=== PATIENT | female | born 1975 | race Caucasian/White ===

== ENCOUNTER 2019-03-25 13:44 | Inpatient (IN) | payer BC ==
[2019-03-25 18:54] VITALS: BMI 21.4
--- NOTE | 2019-03-25 21:33 | HP ---
CIWA Score Nausea/Vomitin-Mild Nausea/No Vomiting Muscle Tremors: 4-Moderate,w/Arms Extend Anxiety: 3 Agitation: 1-Slight > Activity Paroxysmal Sweats: 3 Orientation: 0-Oriented Tacttile Disturbances: 0-None Auditory Disturbances: 0-None Visual Disturbances: 0-None Headache: 4-Moderately Severe CIWA-Ar Total Score: 16 - Admission Criteria OASAS Guidelines: Admission for Medically Managed Detox: Requires at least one of the followin. CIWA greater than 12 2. Seizures within the past 24 hours 3. Delirium tremens within the past 24 hours 4. Hallucinations within the past 24 hours 5. Acute intervention needed for co occurring medical disorder 6. Acute intervention needed for co occurring psychiatric disorder 7. Severe withdrawal that cannot be handled at a lower level of care (continued vomiting, continued diarrhea, abnormal vital signs) requiring intravenous medication and/or fluids 8. Admission ROS [facility] Chief Complaint: Alcohol withdrawal symptoms Allergies/Adverse Reactions: Allergies Allergy/AdvReac Type Severity Reaction Status Date / Time Penicillins AdvReac Severe Swelling Verified 03/25/19 18:23 papaya Allergy Mild Swelling Uncoded 03/25/19 18:23 guava AdvReac Severe Swelling Uncoded 03/25/19 18:23 History of Present Illness: 43 years old female with 29 years of alcohol dependence is seeking admission to detox. Patient has been in previous detox at [facility] and reports insignificant period of sobriety. She reports history of hypertension, hyperthyroidism, seizures, anxiety and depression. She reports suicide attempt 25 years ago and denies suicidal ideation at this time. patient reports blackouts from alcohol intoxication. Patient reports that she fell a couple of days ago. She has bruises to her right hip and left hand. Fall precaution initiated Exam Limitations: No Limitations - Ebola screening Have you traveled outside of the country in the last 21 days: No (N) Have you had contact with anyone from an Ebola affected area: No Do you have a fever: No - Review of Systems Constitutional: Chills, Loss of Appetite, Malaise, Night Sweats, Changes in sleep EENT: reports: Sinus Pressure Respiratory: reports: No Symptoms reported Cardiac: reports: No Symptoms Reported GI: reports: Diarrhea (x 3), Nausea, Poor Appetite, Abdominal cramping : reports: No Symptoms Reported Musculoskeletal: reports: Back Pain, Joint Pain, Muscle Pain Integumentary: reports: Bruising (left hand), Dryness, Flushing Neuro: reports: Headache, Tremors Endocrine: reports: No Symptoms Reported Hematology: reports: No Symptoms Reported Psychiatric: reports: Orientated x3, Anxious, Depressed Other Systems: Reviewed and Negative Patient History - Patient Medical History Hx Anemia: No Hx Asthma: No Hx Chronic Obstructive Pulmonary Disease (COPD): No Hx Cancer: No Hx Cardiac Disorders: No Hx Congestive Heart Failure: No Hx Hypertension: Yes (Not on medication) Hx Hypercholesterolemia: No Hx Pacemaker: No HX Cerebrovascular Accident: No Hx Seizures: Yes (Not on medication) Hx Dementia: No Hx Diabetes: No Hx Gastrointestinal Disorders: No Hx Liver Disease: No Hx Genitourinary Disorders: No Hx Sexually Transmitted Disorders: No Hx Renal Disease (ESRD): No Hx Thyroid Disease: Yes (Hyperthyroid - Not on medication) Hx Human Immunodeficiency Virus (HIV): No Hx Hepatitis C: No Hx Depression: Yes (Not on medication) Hx Suicide Attempt: Yes (Attempt 25 years ago; denies suicidal ideation at this time) Hx Bipolar Disorder: No Hx Schizophrenia: No Other Medical History: anxiety - Not on medixcation - Patient Surgical History Past Surgical History: Yes Hx Orthopedic Surgery: Yes (Knee surgery 23 years ago) Anesthesia Reaction: No - PPD History Previous Implant?: Yes Documented Results: Negative w/o proof Implanted On Prior R Admission?: No PPD to be Administered?: Yes - Reproductive History Patient is a Female of Child Bearing Age (11 -55 yrs old): Yes Last Menstrual Period: 02/16/19 Patient : No - Smoking Cessation Smoking history: Current every day smoker Have you smoked in the past 12 months: Yes Aproximately how many cigarettes per day: 20 Hx Chewing Tobacco Use: No Initiated information on smoking cessation: Yes 'Breaking Loose' booklet given: 03/25/19 - Substance & Tx. History Hx Alcohol Use: Yes Hx Substance Use: Yes Substance Use Type: Alcohol, Marijuana Hx Substance Use Treatment: Yes ([facility] - Substances abused Alcohol Substance route: Oral Frequency: Daily Amount used: 2 liters Age of first use: 14 Date of last use: 03/25/19 Marijuana/Hashish Substance route: Smoking Frequency: 1-2 times per week Amount used: 1 joint Age of first use: 13 Date of last use: 03/25/19 Family Disease History - Family Disease History Family Disease History: CA: Grandparent (Breast cancer - ), Mother ( Alcoholic, Brain tumor ), Brother (Prostate Ca) Admission Physical Exam [facility] - Vital Signs Vital Signs: Vital Signs - 24 hr 03/25/19 18:44 Temperature 99.2 F Pulse Rate 129 H Respiratory 16 Rate Blood Pressure 114/65 - Physical General Appearance: Yes: Moderate Distress, Tremorous, Irritable, Anxious HEENTM: Yes: Within Normal Limits, Nasal Congestion, Rhinorrhea Respiratory: Yes: Lungs Clear, Normal Breath Sounds, No Respiratory Distress Neck: Yes: Supple Breast: Yes: Breast Exam Deferred Cardiology: Yes: Tachycardia Abdominal: Yes: Normal Bowel Sounds, Flat Genitourinary: Yes: Within Normal Limits Back: Yes: Normal Inspection Musculoskeletal: Yes: Back pain, Muscle Pain Extremities: Yes: Tremors Neurological: Yes: Alert, Normal Mood/Affect Integumentary: Yes: Warm Lymphatic: Yes: Within Normal Limits - Diagnostic (1) Alcohol dependence with uncomplicated withdrawal Current Visit: Yes Status: Acute (2) Nicotine dependence Current Visit: Yes Status: Chronic Qualifiers: Nicotine product type: cigarettes Substance use status: uncomplicated Qualified Code(s): F17.210 - Nicotine dependence, cigarettes, uncomplicated (3) Hypertension Current Visit: Yes Status: Chronic Qualifiers: Hypertension type: essential hypertension Qualified Code(s): I10 - Essential (primary) hypertension (4) Seizures Current Visit: Yes Status: Chronic (5) Anxiety Current Visit: Yes Status: Chronic (6) Depression Current Visit: Yes Status: Chronic Qualifiers: Depression Type: unspecified Qualified Code(s): F32.9 - Major depressive disorder, single episode, unspecified Cleared for Admission [facility] - Detox or Rehab [facility] Level of Care: Medically Managed Detox Regimen/Protocol: Librium Breathalyzer - Breathalyzer Breathalyzer: 0.181 Urine Drug Screen - Test Device Lot number: [id number] Expiration date: 11/30/20 - Control Is test valid?: Yes - Results Drug screen NEGATIVE: No Urine drug screen results: THC-Marijuana, BZO-Benzodiazepines Inpatient Rehab Admission - Rehab Decision to Admit Inpatient rehab admission?: No
[2019-03-25] MEDS ORDERED: MAGNESIUM HYDROX 2400MG/30ML ORAL SUSPENSION 30 ML CUP PO PRN (21:47)
[2019-03-25] MEDS ORDERED: MAG HYDROX/AL HYDROX/SIMETH 30 ML UNIT-DOSE CUP PO PRN (21:47)
[2019-03-25] MEDS ORDERED: MENTHOL/PHENOL 1 EACH UD MM PRN (21:47)
[2019-03-25] MEDS ORDERED: ACETAMINOPHEN 325 MG TABLET (FP) PO PRN ×2 (21:47)
[2019-03-25] MEDS ORDERED: hydrOXYzine PAMOATE 25 MG CAPSULE (FP) PO PRN (21:47)
[2019-03-25] MEDS ORDERED: MAGNESIUM CITRATE 300 ML BOTTLE PO PRN (21:47)
[2019-03-25] MEDS: THIAMINE HCL 100 MG TABLET (FP) PO SCH (23:06)
[2019-03-25] MEDS: chlordiazePOXIDE HCL 25 MG CAPSULE PO SCH (23:06)
[2019-03-26] MEDS: chlordiazePOXIDE HCL 25 MG CAPSULE PO PRN ×2 (02:28→20:44)
[2019-03-26] MEDS: chlordiazePOXIDE HCL 25 MG CAPSULE PO SCH ×4 (05:39→22:26)
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
[2019-03-26 10:23] LABS: HEMATOCRIT 38.8 % (32.4-45.2); HEMOGLOBIN 13.3 GM/dL (10.7-15.3); MCH 36.6 pg (25.7-33.7); MCHC 34.2 g/dl (32.0-36.0); MEAN PLT VOLUME 7.9 fl (7.5-11.1); PLATELET COUNT 79 K/MM3 (134-434); RBC 3.62 M/mm3 (3.60-5.2); WHITE BLOOD COUNT 4.1 K/mm3 (4.0-10.0)
[2019-03-26 10:28] LABS: ALBUMIN 3.2 g/dl (3.4-5.0); BILIRUBIN,TOTAL 1.8 mg/dL (0.2-1); BLOOD UREA NITROGEN 4.1 mg/dL (7-18); CALCIUM 8.3 mg/dL (8.5-10.1); CREATININE 0.6 mg/dL (0.55-1.3); POTASSIUM 3.3 mmol/L (3.5-5.1); TOT PROT 6.5 g/dl (6.4-8.2)
--- NOTE | 2019-03-26 10:40 | EKG ---
Test Reason : Blood Pressure : / mmHG Vent. Rate : 099 BPM Atrial Rate : 099 BPM P-R Int : 140 ms QRS Dur : 086 ms QT Int : 364 ms P-R-T Axes : 060 082 072 degrees QTc Int : 467 ms NORMAL SINUS RHYTHM WITH SINUS ARRHYTHMIA NORMAL ECG NO PREVIOUS ECGS AVAILABLE Confirmed by OWEN JEONG, AVNESSA ([id number]) on 03/26/2019 10:40:09 AM Referred By: KEELEY EHLM Confirmed By:VANESSA WEAVER MD
[2019-03-26] MEDS: PRENATAL VITAMINS W/ FOLIC ACID TABLET (FP) PO SCH (11:09)
[2019-03-26] MEDS: NICOTINE 21 MG/24 HOURS TOPICAL PATCH TD SCH (11:09)
[2019-03-26] MEDS: ONDANSETRON *ODT* 4 MG TABLET SL PRN ×2 (11:09→18:32)
--- NOTE | 2019-03-26 14:08 | PN ---
S CIWA - CIWA Score Nausea/Vomitin-No Nausea/No Vomiting Muscle Tremors: 3 Anxiety: 3 Agitation: 4-Moderately Restless Paroxysmal Sweats: 3 Orientation: 0-Oriented Tacttile Disturbances: 0-None Auditory Disturbances: 0-None Visual Disturbances: 0-None Headache: 0-None Present CIWA-Ar Total Score: 13 BHS Progress Note (SOAP) Subjective: sweats shakes interrupted sleep body aches nausea Objective: 03/26/19 14:07 Vital Signs Temperature 96.4 F L 03/26/19 09:25 Pulse Rate 102 H 03/26/19 09:25 Respiratory Rate 16 03/26/19 09:25 Blood Pressure 125/93 03/26/19 09:25 O2 Sat by Pulse Oximetry (%) Laboratory Tests 03/26/19 03/26/19 03/26/19 07:00 07:00 07:00 WBC 4.1 RBC 3.62 Hgb 13.3 Hct 38.8 MCV 107.0 H MCH 36.6 H MCHC 34.2 RDW 19.0 H Plt Count 79 L MPV 7.9 Sodium 138 Potassium 3.3 L Chloride 101 Carbon Dioxide 30 Anion Gap 7 L BUN 4.1 L Creatinine 0.6 Est GFR (CKD-EPI)AfAm 130.30 Est GFR (CKD-EPI)NonAf 112.42 Random Glucose 85 Calcium 8.3 L Total Bilirubin 1.8 H AST 487 H ALT 102 H Alkaline Phosphatase 232 H Total Protein 6.5 Albumin 3.2 L RPR Titer Nonreactive HIV 1&2 Antibody Screen HIV P24 Antigen 03/26/19 07:00 WBC RBC Hgb Hct MCV MCH MCHC RDW Plt Count MPV Sodium Potassium Chloride Carbon Dioxide Anion Gap BUN Creatinine Est GFR (CKD-EPI)AfAm Est GFR (CKD-EPI)NonAf Random Glucose Calcium Total Bilirubin AST ALT Alkaline Phosphatase Total Protein Albumin RPR Titer HIV 1&2 Antibody Screen Negative HIV P24 Antigen Negative Labs noted mild hypokalemia; will repeat and replenish elevated ast/alt d/c tylenol repeat labs aaox3 ambulating no acute distress Assessment: 03/26/19 14:10 withdrawal sx Plan: continue detox increase fluids f/u repeated labs
[2019-03-26] MEDS: POTASSIUM CHLORIDE TABS 20 MEQ TABLET.ER (FP) PO SCH (14:59)
[2019-03-26] MEDS: BISMUTH SUBSALICYLATE 524 MG/30 ML UD PO PRN ×2 (15:34→18:32)
[2019-03-26] MEDS: NICOTINE POLACRILEX 2 MG GUM BUC PRN ×2 (16:39→20:50)
[2019-03-26] MEDS: IBUPROFEN 400 MG TABLET (FP) PO PRN (18:32)
[2019-03-26] MEDS: hydrOXYzine PAMOATE 50 MG CAPSULE (FP) PO PRN (18:32)
[2019-03-26] MEDS: THIAMINE HCL 100 MG TABLET (FP) PO SCH (22:26)
[2019-03-26] MEDS: QUEtiapine FUMARATE 100 MG TABLET (FP) PO SCH (22:26)
[2019-03-26] MEDS: MELATONIN 5 MG TABLETS PO PRN (22:27)
[2019-03-27] MEDS: IBUPROFEN 400 MG TABLET (FP) PO PRN ×4 (00:06→18:03)
[2019-03-27] MEDS: hydrOXYzine PAMOATE 50 MG CAPSULE (FP) PO PRN ×5 (00:06→22:42)
[2019-03-27] MEDS: chlordiazePOXIDE HCL 25 MG CAPSULE PO SCH ×3 (05:43→17:59)
[2019-03-27] MEDS ORDERED: hydrOXYzine PAMOATE 25 MG CAPSULE (FP) PO ONE (05:44)
[2019-03-27] MEDS: PRENATAL VITAMINS W/ FOLIC ACID TABLET (FP) PO SCH (11:00)
[2019-03-27] MEDS: POTASSIUM CHLORIDE TABS 20 MEQ TABLET.ER (FP) PO SCH (11:00)
[2019-03-27] MEDS: NICOTINE 21 MG/24 HOURS TOPICAL PATCH TD SCH (11:00)
[2019-03-27] MEDS: NICOTINE POLACRILEX 2 MG GUM BUC PRN ×3 (11:05→21:04)
[2019-03-27] MEDS: BISMUTH SUBSALICYLATE 524 MG/30 ML UD PO PRN ×2 (11:07→14:29)
--- NOTE | 2019-03-27 11:45 | PN ---
S CIWA - CIWA Score Nausea/Vomitin-No Nausea/No Vomiting Muscle Tremors: 3 Anxiety: 3 Agitation: 3 Paroxysmal Sweats: 1-Minimal Palms Moist Orientation: 0-Oriented Tacttile Disturbances: 0-None Auditory Disturbances: 0-None Visual Disturbances: 0-None Headache: 0-None Present CIWA-Ar Total Score: 10 BHS Progress Note (SOAP) Subjective: anxiety sweats shakes irritable Objective: 03/27/19 11:44 Vital Signs Temperature 97.9 F 03/27/19 09:53 Pulse Rate 80 03/27/19 09:53 Respiratory Rate 16 03/27/19 09:53 Blood Pressure 100/66 03/27/19 09:53 O2 Sat by Pulse Oximetry (%) Laboratory Tests 03/25/19 03/26/19 03/26/19 19:22 07:00 07:00 WBC 4.1 RBC 3.62 Hgb 13.3 Hct 38.8 MCV 107.0 H MCH 36.6 H MCHC 34.2 RDW 19.0 H Plt Count 79 L MPV 7.9 Sodium 138 Potassium 3.3 L Chloride 101 Carbon Dioxide 30 Anion Gap 7 L BUN 4.1 L Creatinine 0.6 Est GFR (CKD-EPI)AfAm 130.30 Est GFR (CKD-EPI)NonAf 112.42 Random Glucose 85 Calcium 8.3 L Total Bilirubin 1.8 H AST 487 H ALT 102 H Alkaline Phosphatase 232 H Total Protein 6.5 Albumin 3.2 L POC Urine HCG, Qual Negative RPR Titer HIV 1&2 Antibody Screen HIV P24 Antigen 03/26/19 03/26/19 07:00 07:00 WBC RBC Hgb Hct MCV MCH MCHC RDW Plt Count MPV Sodium Potassium Chloride Carbon Dioxide Anion Gap BUN Creatinine Est GFR (CKD-EPI)AfAm Est GFR (CKD-EPI)NonAf Random Glucose Calcium Total Bilirubin AST ALT Alkaline Phosphatase Total Protein Albumin POC Urine HCG, Qual RPR Titer Nonreactive HIV 1&2 Antibody Screen Negative HIV P24 Antigen Negative repeated labs pending aaox3 ambulating no acute distress Assessment: 03/27/19 11:44 withdrawal sx Plan: continue detox increase fluids
[2019-03-27 12:26] LABS: ALBUMIN 3.5 g/dl (3.4-5.0); BILIRUBIN,TOTAL 1.6 mg/dL (0.2-1); BLOOD UREA NITROGEN 5.5 mg/dL (7-18); CALCIUM 9.4 mg/dL (8.5-10.1); CREATININE 0.6 mg/dL (0.55-1.3); TOT PROT 6.6 g/dl (6.4-8.2)
[2019-03-27 13:22] LABS: INR 0.88 (0.83-1.09); PROTHROMBIN TIME (PATIENT) 10.4 SEC (9.7-13.0)
[2019-03-27] MEDS: chlordiazePOXIDE HCL 25 MG CAPSULE PO PRN ×2 (14:26→21:04)
[2019-03-27] MEDS: chlordiazePOXIDE HCL 10 MG CAPSULE PO SCH (22:39)
[2019-03-27] MEDS: QUEtiapine FUMARATE 100 MG TABLET (FP) PO SCH (22:39)
[2019-03-27] MEDS: THIAMINE HCL 100 MG TABLET (FP) PO SCH (22:39)
[2019-03-27] MEDS: MELATONIN 5 MG TABLETS PO PRN (22:40)
[2019-03-27] MEDS ORDERED: chlordiazePOXIDE HCL 10 MG CAPSULE PO PRN (23:00)
[2019-03-28] MEDS: chlordiazePOXIDE HCL 10 MG CAPSULE PO SCH ×4 (05:56→23:00)
[2019-03-28] MEDS: hydrOXYzine PAMOATE 50 MG CAPSULE (FP) PO PRN ×3 (05:57→19:04)
[2019-03-28] MEDS: POTASSIUM CHLORIDE TABS 20 MEQ TABLET.ER (FP) PO SCH (10:41)
[2019-03-28] MEDS: PRENATAL VITAMINS W/ FOLIC ACID TABLET (FP) PO SCH (10:42)
[2019-03-28] MEDS: NICOTINE 21 MG/24 HOURS TOPICAL PATCH TD SCH (10:42)
[2019-03-28] MEDS: IBUPROFEN 400 MG TABLET (FP) PO PRN ×2 (10:43→19:03)
[2019-03-28] MEDS: NICOTINE POLACRILEX 2 MG GUM BUC PRN (10:47)
--- NOTE | 2019-03-28 12:27 | EKG ---
Test Reason : Blood Pressure : / mmHG Vent. Rate : 079 BPM Atrial Rate : 079 BPM P-R Int : 136 ms QRS Dur : 086 ms QT Int : 398 ms P-R-T Axes : 063 084 077 degrees QTc Int : 456 ms NORMAL SINUS RHYTHM NORMAL ECG WHEN COMPARED WITH ECG OF 25-MAR-2019 22:11, NO SIGNIFICANT CHANGE WAS FOUND Confirmed by THEE JEONG, BEATA ([id number]) on 03/28/2019 12:27:19 PM Referred By: VOLODYMYR HUERTAS Confirmed By:BEATA KINGSTON MD
--- NOTE | 2019-03-28 14:02 | PN ---
BHS Progress Note Note: Patient reports sleeping poorly despite taking Seroquel 100 mh/hs. Requests for Seroquel dosage to be increased to 200 mg/hs
--- NOTE | 2019-03-28 14:11 | PN ---
S CIWA - CIWA Score Nausea/Vomitin-No Nausea/No Vomiting Muscle Tremors: 3 Anxiety: 2 Agitation: 2 Paroxysmal Sweats: 2 Orientation: 0-Oriented Tacttile Disturbances: 0-None Auditory Disturbances: 0-None Visual Disturbances: 0-None Headache: 0-None Present CIWA-Ar Total Score: 9 S Progress Note (SOAP) Subjective: little anxiety feeling better Objective: 03/28/19 14:10 Vital Signs Temperature 98.2 F 03/28/19 10:00 Pulse Rate 100 H 03/28/19 10:00 Respiratory Rate 17 03/28/19 10:00 Blood Pressure 129/69 03/28/19 10:00 O2 Sat by Pulse Oximetry (%) Laboratory Tests 03/25/19 03/26/19 03/26/19 19:22 07:00 07:00 WBC 4.1 RBC 3.62 Hgb 13.3 Hct 38.8 MCV 107.0 H MCH 36.6 H MCHC 34.2 RDW 19.0 H Plt Count 79 L MPV 7.9 PT with INR INR Sodium 138 Potassium 3.3 L Chloride 101 Carbon Dioxide 30 Anion Gap 7 L BUN 4.1 L Creatinine 0.6 Est GFR (CKD-EPI)AfAm 130.30 Est GFR (CKD-EPI)NonAf 112.42 Random Glucose 85 Calcium 8.3 L Total Bilirubin 1.8 H AST 487 H ALT 102 H Alkaline Phosphatase 232 H Total Protein 6.5 Albumin 3.2 L POC Urine HCG, Qual Negative RPR Titer HIV 1&2 Antibody Screen HIV P24 Antigen 03/26/19 03/26/19 03/27/19 07:00 07:00 08:35 WBC RBC Hgb Hct MCV MCH MCHC RDW Plt Count MPV PT with INR 10.40 INR 0.88 Sodium Potassium Chloride Carbon Dioxide Anion Gap BUN Creatinine Est GFR (CKD-EPI)AfAm Est GFR (CKD-EPI)NonAf Random Glucose Calcium Total Bilirubin AST ALT Alkaline Phosphatase Total Protein Albumin POC Urine HCG, Qual RPR Titer Nonreactive HIV 1&2 Antibody Screen Negative HIV P24 Antigen Negative 03/27/19 08:35 WBC RBC Hgb Hct MCV MCH MCHC RDW Plt Count MPV PT with INR INR Sodium 139 Potassium 4.0 Chloride 103 Carbon Dioxide 29 Anion Gap 7 L BUN 5.5 L Creatinine 0.6 Est GFR (CKD-EPI)AfAm 130.30 Est GFR (CKD-EPI)NonAf 112.42 Random Glucose 70 L Calcium 9.4 Total Bilirubin 1.6 H AST 303 H ALT 93 H Alkaline Phosphatase 225 H Total Protein 6.6 Albumin 3.5 POC Urine HCG, Qual RPR Titer HIV 1&2 Antibody Screen HIV P24 Antigen repeat labs ast.alt; are improving aaox3 ambulating no acute distress Assessment: 03/28/19 14:11 mild withdrawal sx Plan: continue detox increase fluids
[2019-03-28] MEDS: ONDANSETRON *ODT* 4 MG TABLET SL PRN (17:34)
[2019-03-28] MEDS: METHOCARBAMOL 500 MG TABLET PO PRN (17:35)
[2019-03-28] MEDS: MELATONIN 5 MG TABLETS PO PRN (23:00)
[2019-03-28] MEDS: QUEtiapine FUMARATE 200 MG TABLET PO SCH (23:00)
[2019-03-28] MEDS: THIAMINE HCL 100 MG TABLET (FP) PO SCH (23:00)
[2019-03-29] MEDS: hydrOXYzine PAMOATE 50 MG CAPSULE (FP) PO PRN ×4 (08:30→22:34)
[2019-03-29] MEDS: METHOCARBAMOL 500 MG TABLET PO PRN ×3 (08:31→21:00)
[2019-03-29] MEDS: IBUPROFEN 400 MG TABLET (FP) PO PRN (10:39)
[2019-03-29] MEDS: POTASSIUM CHLORIDE TABS 20 MEQ TABLET.ER (FP) PO SCH (10:40)
[2019-03-29] MEDS: PRENATAL VITAMINS W/ FOLIC ACID TABLET (FP) PO SCH (10:40)
[2019-03-29] MEDS: NICOTINE 21 MG/24 HOURS TOPICAL PATCH TD SCH (10:40)
[2019-03-29] MEDS: chlordiazePOXIDE HCL 10 MG CAPSULE PO SCH ×2 (10:40→22:31)
--- NOTE | 2019-03-29 12:32 | PN ---
S CIWA - CIWA Score Nausea/Vomitin-No Nausea/No Vomiting Muscle Tremors: 1-None Visible, but [place] Anxiety: 1-Mildly Anxious Agitation: 1-Slight > Activity Paroxysmal Sweats: No Perspiration Orientation: 0-Oriented Tacttile Disturbances: 0-None Auditory Disturbances: 0-None Visual Disturbances: 0-None Headache: 0-None Present CIWA-Ar Total Score: 3 BHS Progress Note (SOAP) Subjective: little anxiety Objective: 03/29/19 12:31 Vital Signs Temperature 97.9 F 03/29/19 09:39 Pulse Rate 96 H 03/29/19 09:39 Respiratory Rate 18 03/29/19 09:39 Blood Pressure 101/66 03/29/19 09:39 O2 Sat by Pulse Oximetry (%) aaox3 ambulating no acute distress Assessment: 03/29/19 12:32 mild to no withdrawal sx Plan: continue and complete detox increase fluids d/c in am
[2019-03-29] MEDS: NICOTINE POLACRILEX 2 MG GUM BUC PRN (16:03)
--- NOTE | 2019-03-29 18:00 | PN ---
[facility] Progress Note Note: Vital Signs Temperature 98.4 F 03/29/19 17:34 Pulse Rate 105 H 03/29/19 17:34 Respiratory Rate 18 03/29/19 17:34 Blood Pressure 117/72 03/29/19 17:34 O2 Sat by Pulse Oximetry (%) c/o of anxiety, chills, body aches withdrawal sx gabapentin 100 mg tid continue detox increase fluids continue to monitor
[2019-03-29] MEDS: GABAPENTIN 100 MG CAPSULE (FP) PO SCH (22:31)
[2019-03-29] MEDS: QUEtiapine FUMARATE 200 MG TABLET PO SCH (22:31)
[2019-03-29] MEDS: THIAMINE HCL 100 MG TABLET (FP) PO SCH (22:31)
[2019-03-29] MEDS: MELATONIN 5 MG TABLETS PO PRN (22:31)
[2019-03-30] MEDS: GABAPENTIN 100 MG CAPSULE (FP) PO SCH (06:11)
--- NOTE | 2019-03-30 08:49 | DS ---
[facility] Detox Discharge Summary Admission Date: 03/25/19 Discharge Date: 03/30/19 - History Present History: Alcohol Dependence, Cannabis Dependence Additional Comments: Patient stable. Follow up with Primary care provider. - Physical Exam Results Vital Signs: Vital Signs Temperature 97 F L 03/30/19 07:21 Pulse Rate 73 03/30/19 07:21 Respiratory Rate 16 03/30/19 07:21 Blood Pressure 90/62 03/30/19 07:21 O2 Sat by Pulse Oximetry (%) - Treatment Hospital Course: Detox Protocol Followed, Detoxed Safely, Responded well, Discharged Condition Good Patient has Accepted a Rehab Referral to: out patient programs - Medication Discharge Medications: Ambulatory Orders Bupropion HCl [Wellbutrin -] 150 mg PO DAILY 03/25/19 Chlordiazepoxide [Librium -] 100 mg PO Q4HWA 03/25/19 Quetiapine Fumarate [Seroquel] 50 mg PO BID 03/25/19 Quetiapine Fumarate [Seroquel] 200 mg PO HS 03/25/19 Gabapentin [Neurontin -] 100 mg PO TID #15 capsule 03/30/19 - Diagnosis (1) Alcohol dependence with uncomplicated withdrawal Status: Acute (2) Cannabis abuse Status: Acute (3) Hypertension Status: Chronic Qualifiers: Hypertension type: essential hypertension Qualified Code(s): I10 - Essential (primary) hypertension (4) Hyperthyroidism Status: Chronic (5) Nicotine dependence Status: Chronic Qualifiers: Nicotine product type: cigarettes Substance use status: uncomplicated Qualified Code(s): F17.210 - Nicotine dependence, cigarettes, uncomplicated (6) Seizures Status: Chronic - AMA Did Patient Leave Against Medical Advice: No
[2019-03-30] MEDS ORDERED: GABAPENTIN 100 MG CAPSULE (FP) PO ONE (08:58)
[2019-03-30] MEDS: PRENATAL VITAMINS W/ FOLIC ACID TABLET (FP) PO SCH (09:25)
[2019-03-30] MEDS ORDERED: hydrOXYzine PAMOATE 50 MG CAPSULE (FP) PO ONE (09:27)
[2019-03-30] MEDS: hydrOXYzine PAMOATE 50 MG CAPSULE (FP) PO PRN (09:28)
[2019-03-30 09:32] VITALS: BP 100/62; PULSE 100; TEMP 97.3
== END 2019-03-30 09:30 | disposition home or self-care (01) | DRG 775 ==
LOC: YASAS 13:44 → Y6N 21:44
PROVIDERS: ADMIT Surgery; ATTEND Surgery
PROC: HZ2ZZZZ Detoxification Services for Substance Abuse Treatment (ICD-10-PCS; principal; 2019-03-25)
DX: F10.230 Alcohol dependence with withdrawal, uncomplicated (principal); F12.20 Cannabis dependence, uncomplicated; F17.210 Nicotine dependence, cigarettes, uncomplicated; F19.24 Other psychoactive substance dependence with psychoactive substance-induced mood disorder; F19.282 Other psychoactive substance dependence with psychoactive substance-induced sleep disorder; F43.10 Post-traumatic stress disorder, unspecified; I10 Essential (primary) hypertension; E03.9 Hypothyroidism, unspecified; G40.909 Epilepsy, unspecified, not intractable, without status epilepticus; R94.5 Abnormal results of liver function studies; E87.6 Hypokalemia
CPT/HCPCS: 36415; 80053; 81025; 85027; 85610; 86593; 87389; 93005; 93010; Q0162